=== PATIENT | female | born 1950 | race Caucasian/White ===

== ENCOUNTER → 2022-06-16 | Outpatient (CLI) | payer OTHER | END | disposition home or self-care (01) | LOC: RAH 13:36 | PROVIDERS: ATTEND Nurse Practitioner | DX: M17.11 Unilateral primary osteoarthritis, right knee (principal); M71.21 Synovial cyst of popliteal space [Baker], right knee | CPT/HCPCS: 73721 ==

== ENCOUNTER 2023-04-18 06:15 | Observation (INO) | payer OTHER ==
[2023-04-15 11:48] VITALS: BP 160/70; PULSE 52; RESP 16
[2023-04-15 12:09] LABS: BASOPHILS # (AUTO) 0.05 K/uL (0.00-0.20); BASOPHILS % (AUTO) 0.7 % (0.0-5.0); EOSINOPHILS % (AUTO) 1.3 % (0.0-8.0); IMMATURE GRANULOCYTE ABSOLUTE 0.03 K/uL (0-1); LYMPHOCYTES # (AUTO) 1.4 K/uL (1.0-4.8); LYMPHOCYTES % (AUTO) 18.4 % (21.0-51.0); MEAN CORPUSCULAR HEMOGLOBIN 29.5 pg (27.0-33.0); MEAN CORPUSCULAR VOLUME 92.3 fL (79-99); MONOCYTES # (AUTO) 0.8 K/uL (0.1-1.0); MONOCYTES % (AUTO) 10.5 % (3.0-13.0); NEUTROPHILS # (AUTO) 5.1 K/uL (1.8-7.7); NEUTROPHILS % (AUTO) 68.7 % (40.0-77.0); PLATELET COUNT (AUTO) 282 K/uL (130-400); RED BLOOD CELL COUNT(AUTO) 4.44 MIL/uL (4.00-5.50); RED CELL DISTRIBUTION WIDTH 13.1 % (11.0-15.5); WHITE BLOOD COUNT (AUTO) 7.5 K/uL (4.8-10.8)
[2023-04-15 12:20] LABS: APPEARANCE,URINE CLEAR (CLEAR); BILIRUBIN,URINE NEGATIVE (NEGATIVE); COLOR,URINE LIGHT-YELLOW (YELLOW); GLUCOSE, URINE (UA) NEGATIVE (NEGATIVE); KETONES,URINE NEGATIVE (NEGATIVE); LEUKOCYTE ESTERASE ,URINE NEGATIVE Leu/uL (NEGATIVE); NITRATE,URINE NEGATIVE (NEGATIVE); OCCULT BLOOD,URINE NEGATIVE (NEGATIVE); PROTEIN,URINE NEGATIVE (NEGATIVE); UROBILINOGEN,URINE 0.2 mg/dL (0.2-1.0)
[2023-04-15 12:23] LABS: ADD UA MICROSCOPIC NO
[2023-04-15 12:26] LABS: CARBON DIOXIDE 37 mmol/L (21-32); CHLORIDE 102 mmol/L (101-111); CREATININE 0.6 mg/dL (0.5-1.5); GLOMERULAR FILTR. RATE CALC 94 mL/min (>90); GLUCOSE,RANDOM 106 mg/dL (70-105); INR < 0.93 (0.85-1.15); POTASSIUM 3.8 mmol/L (3.5-5.1); PROTHROMBIN TIME 9.9 SEC (9.6-11.6); SODIUM SERUM 143 mmol/L (136-145); UREA NITROGEN, BLOOD 20 mg/dL (7-18)
[2023-04-15 12:28] LABS: PARTIAL THROMBOPLASTIN TIME 24.8 SEC (26.3-35.5)
[2023-04-18] VITALS (26 sets, daily range): BP systolic 128–171; BP diastolic 47–73; PULSE 58–75; RESP 14–19; O2SAT 95–99
[~2023-04-18] VITALS: Ht 162.6 cm; Wt 81.6 kg
[~2023-04-18 06:15] MED LIST: ACYC5CRE2 TP; CELE200C PO; CLOT15CR23 TP; ESCI-8 PO; ESTR1TAB30 PO; FAMC500T8 PO; FOLI0.8T3 PO; GABA300S3 PO; HYDR-3830 PO; KETO120S13 TP; LEFL20TA18 PO; LEVO100C4 PO; NITR0.4T50 SL; NYST15CR39 TP; SIMV-46 PO; TERB250T89 PO; TRIAM15CRM TP
[2023-04-18] MEDS ORDERED: LACTATED RINGERS 1000ML 1,000 ML IV ONE (07:00)
[2023-04-18] MEDS ORDERED: CEFAZOLIN SODIUM 2 GM VIAL ONE (07:00)
[2023-04-18] MEDS ORDERED: SUCCINYLCHOLINE CHLORIDE 20 MG/ML 10 ML VIAL ONE (09:45)
[2023-04-18] MEDS ORDERED: ONDANSETRON 4MG INJ ONE ×2 (09:45→14:10)
[2023-04-18] MEDS ORDERED: LIDOCAINE PF 100MG/5ML (2%) SYRINGE 5ML ONE (09:45)
[2023-04-18] MEDS ORDERED: DEXAMETHASONE SOD PHOSPHATE 10MG/ML 1ML VIAL ONE (09:45)
[2023-04-18] MEDS ORDERED: PROPOFOL 10 MG/ML 20ML VIAL IV ONE (09:45)
[2023-04-18] MEDS ORDERED: NEOSTIGMINE 5MG/5ML SYR IV ONE (09:46)
[2023-04-18] MEDS ORDERED: FENTANYL CITRATE PF 50 MCG/1 ML 2ML VIAL ONE ×2 (09:46→11:23)
[2023-04-18] MEDS ORDERED: MIDAZOLAM HCL 1 MG/ML 2ML VIAL ONE (09:46)
[2023-04-18] MEDS ORDERED: GLYCOPYRROLATE 1 MG/5 ML SYRINGE ONE (09:46)
[2023-04-18] MEDS ORDERED: ROCURONIUM 10MG/1ML SYR 10 MG/ML ML ONE (09:46)
[2023-04-18] MEDS ORDERED: TRANEXAMIC ACID 1000MG/10ML ONE ×2 (09:47)
[2023-04-18] MEDS ORDERED: ROPIVACAINE 0.5% 5MG/ML 30ML ONE ×2 (10:30→13:06)
[2023-04-18] MEDS ORDERED: KETOROLAC 30MG VIAL (30MG/ML) ONE (10:30)
[2023-04-18] MEDS ORDERED: ARTIFICIAL TEARS 3.5 GM OINTMENT ONE (11:13)
[2023-04-18] MEDS ORDERED: MEPERIDINE-PF 25 MG/ML SYG ONE ×4 (12:56→14:18)
[2023-04-18] MEDS ORDERED: CALCIUM CARB 500MG PO PRN (14:00)
[2023-04-18] MEDS ORDERED: KCL 20 MEQ ERTAB PO PRN (14:00)
[2023-04-18] MEDS ORDERED: POTASSIUM CHLORIDE 20MEQ/100ML 100 ML IV PRN (14:00)
[2023-04-18] MEDS ORDERED: TRAMADOL HCL 50 MG TABLET PO PRN (14:00)
[2023-04-18] MEDS ORDERED: ONDANSETRON 4MG INJ IVP PRN (14:00)
[2023-04-18] MEDS ORDERED: POTASSIUM CHLORIDE 10% ELIXIR 20 MEQ/15 ML UDCUP PO PRN (14:00)
[2023-04-18] MEDS ORDERED: FERROUS FUMARATE 324 MG TABLET PO PRN (14:00)
[2023-04-18] MEDS ORDERED: KETOROLAC 15MG/ML VIAL (15MG/ML) ONE (14:18)
[2023-04-18] MEDS: KETOROLAC 15MG/ML VIAL (15MG/ML) IV SCH ×2 (14:27→22:31)
[2023-04-18] MEDS ORDERED: HYDROCODONE/ACETAMINOPHEN 5/325 MG TAB ONE ×2 (15:19→16:31)
[2023-04-18] MEDS ORDERED: HYDRALAZINE 20MG/ML VIAL ONE (15:54)
[2023-04-18] MEDS ORDERED: TRAMADOL HCL 50 MG TABLET ONE (17:40)
[2023-04-18] MEDS: 0.9%NACL 1000ML 1,000 ML IV SCH (18:57)
[2023-04-18] MEDS ORDERED: NON-FORMULARY MEDICATION 1 EACH (Levothyroxine Sodium (Levothyroxine) 100 MCG) PO SCH (19:00)
[2023-04-18] MEDS ORDERED: NITROGLYCERIN 0.4 MG SL TAB SL PRN (19:00)
[2023-04-18] MEDS: CEFAZOLIN SODIUM 2 GM VIAL IVPB SCH (19:31)
[2023-04-18] MEDS: GABAPENTIN 300 MG CAPSULE PO SCH (20:33)
[2023-04-18] MEDS: DOCUSATE SODIUM 100 MG CAP PO SCH (20:33)
[2023-04-18] MEDS: SIMVASTATIN 20 MG TABLET PO SCH (20:33)
[2023-04-18] MEDS: HYDROCODONE/ACETAMINOPHEN 5/325 MG TAB PO PRN (20:34)
[2023-04-18] MEDS: FAMCICLOVIR 500 MG PO SCH (21:00)
[2023-04-18] MEDS ORDERED: NON-FORMULARY MEDICATION 1 EACH (Simvastatin 40 MG) PO SCH (21:00)
[2023-04-18] MEDS ORDERED: CELECOXIB 200 MG CAP PO SCH (21:00)
[2023-04-18] MEDS ORDERED: NON-FORMULARY MEDICATION 1 EACH (Gabapentin 300 MG) PO SCH (21:00)
[2023-04-18] MEDS: CYCLOBENZAPRINE HCL 10 MG TABLET PO PRN (22:39)
[2023-04-19] VITALS (8 sets, daily range): BP systolic 127–165; BP diastolic 51–78; PULSE 58–78; RESP 18–20; O2SAT 93–97
[2023-04-19] MEDS: HYDROCODONE/ACETAMINOPHEN 5/325 MG TAB PO PRN ×5 (01:14→19:44)
[2023-04-19] MEDS: CEFAZOLIN SODIUM 2 GM VIAL IVPB SCH (03:31)
[2023-04-19] MEDS: 0.9%NACL 1000ML 1,000 ML IV SCH ×2 (03:32→10:00)
[2023-04-19 05:14] LABS: HEMATOCRIT 31.4 % (36-48); MEAN CORPUSCULAR HEMOGLOBIN 29.9 pg (27.0-33.0); MEAN CORPUSCULAR HGB CONC 32.2 g/dL (32.0-36.0); MEAN CORPUSCULAR VOLUME 92.9 fL (79-99); RED BLOOD CELL COUNT(AUTO) 3.38 MIL/uL (4.00-5.50); WHITE BLOOD COUNT (AUTO) 12.2 K/uL (4.8-10.8)
[2023-04-19 05:29] LABS: CREATININE 0.9 mg/dL (0.5-1.5); POTASSIUM 4.5 mmol/L (3.5-5.1)
[2023-04-19] MEDS: KETOROLAC 15MG/ML VIAL (15MG/ML) IV SCH (05:58)
[2023-04-19] MEDS: LEVOTHYROXINE 100 MCG TABLET PO SCH (05:59)
[2023-04-19] MEDS: FOLIC ACID 1 MG TABLET PO SCH (08:48)
[2023-04-19] MEDS: ASPIRIN 325MG EC TAB PO SCH (08:48)
[2023-04-19] MEDS: GABAPENTIN 300 MG CAPSULE PO SCH ×3 (08:49→19:47)
[2023-04-19] MEDS: POLYETHYLENE GLYCOL 3350 17 GM POWD.PACK PO SCH (08:49)
[2023-04-19] MEDS: DOCUSATE SODIUM 100 MG CAP PO SCH ×2 (08:49→19:47)
[2023-04-19] MEDS ORDERED: NON-FORMULARY MEDICATION 1 EACH (Folic Acid 1 MG) PO SCH (09:00)
[2023-04-19] MEDS: (Escitalopram Oxalate 10 MG) PO SCH (09:00)
[2023-04-19] MEDS: FAMCICLOVIR 500 MG PO SCH ×2 (09:00→19:49)
[2023-04-19] MEDS ORDERED: KETOROLAC 15MG/ML VIAL (15MG/ML) IV PRN (14:00)
[2023-04-19] MEDS ORDERED: TERBINAFINE HCL 250 MG TABLET PO SCH (17:00)
[2023-04-19] MEDS ORDERED: HYDROXYZINE 10 MG TABLET PO SCH (17:00)
[2023-04-19] MEDS: SIMVASTATIN 20 MG TABLET PO SCH (19:47)
[2023-04-19] MEDS: CYCLOBENZAPRINE HCL 10 MG TABLET PO PRN (23:43)
[2023-04-20 04:00] VITALS: BP 153/57; PULSE 76; RESP 19
[2023-04-20] MEDS: HYDROCODONE/ACETAMINOPHEN 5/325 MG TAB PO PRN ×3 (05:29→13:41)
[2023-04-20] MEDS: LEVOTHYROXINE 100 MCG TABLET PO SCH (06:17)
[2023-04-20 08:28] VITALS: BP 164/64; PULSE 68; RESP 17
[2023-04-20] MEDS: FOLIC ACID 1 MG TABLET PO SCH (08:31)
[2023-04-20] MEDS: ASPIRIN 325MG EC TAB PO SCH (08:31)
[2023-04-20] MEDS: POLYETHYLENE GLYCOL 3350 17 GM POWD.PACK PO SCH (08:32)
[2023-04-20] MEDS: DOCUSATE SODIUM 100 MG CAP PO SCH (08:32)
[2023-04-20] MEDS: GABAPENTIN 300 MG CAPSULE PO SCH ×2 (08:32→13:41)
[2023-04-20] MEDS: FAMCICLOVIR 500 MG PO SCH (08:33)
[2023-04-20] MEDS: (Escitalopram Oxalate 10 MG) PO SCH (08:33)
[2023-04-20] MEDS ORDERED: ASPI-891 PO (12:42)
[2023-04-20] MEDS ORDERED: DOCU-116 PO (12:42)
[2023-04-20] MEDS ORDERED: HYDR-4060 PO (12:42)
[2023-04-20] MEDS ORDERED: CYCL-309 PO (12:42)
[2023-04-20 13:02] VITALS: BP 152/63; PULSE 62; RESP 19
[2023-04-21] MEDS ORDERED: BISACODYL 10 MG SUPP.RECT RC PRN (14:00)
== END 2023-04-20 16:45 ==
LOC: DAH 06:15 → DAHIP 06:16 → DAH 06:16 → 4AH 18:15
PROVIDERS: ADMIT Student in an Organized Health Care Education/Training Program; ATTEND Student in an Organized Health Care Education/Training Program
DX: M17.11 Unilateral primary osteoarthritis, right knee (principal); M67.361 Transient synovitis, right knee; G89.18 Other acute postprocedural pain; D62 Acute posthemorrhagic anemia; E66.9 Obesity, unspecified; I10 Essential (primary) hypertension; K21.9 Gastro-esophageal reflux disease without esophagitis; E03.9 Hypothyroidism, unspecified; Z79.82 Long term (current) use of aspirin; Z90.710 Acquired absence of both cervix and uterus; Z88.5 Allergy status to narcotic agent; Z68.30 Body mass index [BMI] 30.0-30.9, adult
CPT/HCPCS: 82040; 80048 ×2; 85025; 85610; 85730; 87088; 84134; 86140; 81003; 36415 ×2; 87641; 96365; 96375; 27447; 64447; 88304; 73560; 97161; 97116 ×5; 97530 ×6; 96376; 96366; 85027; A6260; G0378 ×44; A4663; J7120 ×2; A4215 ×2; J3010 ×2; J3490 ×3; J1100; J2710; J0330; J2001; J0360; J2250; J2704; J2405 ×2; J1885 ×5; J2175 ×4; J2795 ×2; J0690 ×3; C1713 ×2; G0168; A4649 ×3; C1776; A6255; A4223; A4222; A4221

== ENCOUNTER 2024-10-22 13:00 | Inpatient (IN) | payer OTHER ==
[~2024-10-22] VITALS: Ht 162.6 cm; Wt 82.6 kg
[~2024-10-22 13:00] MED LIST changes: -CELE200C PO; +CELE200C3 PO; -CLOT15CR23 TP; -ESTR1TAB30 PO; -FOLI0.8T3 PO; -GABA300S3 PO; -KETO120S13 TP; -LEFL20TA18 PO; -LEVO100C4 PO; +LEVO100C5 PO; -NYST15CR39 TP; -SIMV-46 PO; -TERB250T89 PO; -TRIAM15CRM TP
[2024-10-22 14:06] VITALS: BP 145/78; PULSE 54; RESP 17; TEMP 97.3
[2024-10-22] MEDS ORDERED: GABA300C PO (19:38)
[2024-10-22] MEDS ORDERED: FOLI1 PO (19:38)
[2024-10-22] MEDS ORDERED: UPAD15TA PO (19:38)
[2024-10-22] MEDS ORDERED: CYAN250010 PO (19:40)
[2024-10-22] MEDS ORDERED: HYDR15SO11 PO (19:40)
[2024-10-22] MEDS ORDERED: MVIT PO (19:40)
[2024-10-22] MEDS ORDERED: KETO10 PO (19:40)
[2024-10-22] MEDS ORDERED: EYE HEALTH VITAMIN PO (19:40)
[2024-10-24] VITALS (26 sets, daily range): BP systolic 107–166; BP diastolic 29–80; PULSE 51–75; RESP 10–20; TEMP 96.9–98.5; O2SAT 96–97
[2024-10-24] MEDS: LACTATED RINGERS 1000ML 1,000 ML IV ONE (08:45)
[2024-10-24] MEDS: ceFAZolin SODIUM 2 GM VIAL ONE (08:45)
[2024-10-24] MEDS: MIDAZOLAM HCL 1 MG/ML 2ML VIAL ONE (08:53)
[2024-10-24] MEDS: FAMOTIDINE 20MG VIAL IV ONE (10:47)
[2024-10-24] MEDS: acetaMINOPHEN 0 ML ONE (10:47)
[2024-10-24] MEDS ORDERED: LIDOCAINE PF 100MG/5ML (2%) SYRINGE 5ML ONE (10:51)
[2024-10-24] MEDS ORDERED: rocuRONium bROMide 10MG/1ML 5ML VL ONE (10:52)
[2024-10-24] MEDS ORDERED: FENTanyl CITRate PF 50 MCG/1 ML 2ML VIAL ONE (10:52)
[2024-10-24] MEDS ORDERED: proPOFol 10 MG/ML 20ML VIAL IV ONE (10:52)
[2024-10-24] MEDS ORDERED: ROPivacaine 0.5% 5MG/ML 30ML ONE ×2 (10:55→11:00)
[2024-10-24] MEDS: TRANEXAMIC ACID 1000MG/10ML ONE (12:40)
[2024-10-24] MEDS: ceFAZolin SODIUM 1 GM VIAL IRRIG ONE (12:53)
[2024-10-24] MEDS ORDERED: ePHEDrine SULFate 50 MG/ML AMPULE ONE (13:01)
[2024-10-24] MEDS ORDERED: dexaMETHasone SOD PHOSPHATE 4 MG/ML 1ML VIAL ONE (13:03)
[2024-10-24] MEDS ORDERED: ondanSETRON 4MG INJ ONE (13:03)
[2024-10-24] MEDS ORDERED: NEOSTIGMINE METHYLSULFATE 1MG/ML IV ONE (13:28)
[2024-10-24] MEDS ORDERED: GLYCOPYRROLATE 0.2 MG/ML 5 ML VIAL ONE (13:28)
--- NOTE | 2024-10-24 15:26 | HMCIMG ---
Fluoroscopic guidance History: ORIF LT TSA, REVISION Fluoroscopic guidance provided. Procedure by ordering physician in operating room suite with fluoroscopic guidance. Several spot images were obtained. Impression: Fluoroscopic guidance.
[2024-10-24] MEDS ORDERED: CYCLOBENZAPRINE HCL 10 MG TABLET PO PRN (15:30)
[2024-10-24] MEDS ORDERED: DiphenhydrAMINE HCL 50 MG/ML VIAL IVP PRN (15:30)
[2024-10-24] MEDS ORDERED: PoTASSium chl 10% ELIXIR 20MEQ 20 MEQ/15 ML UDCUP PO PRN (15:30)
[2024-10-24] MEDS ORDERED: ondanSETRON 4MG INJ IVP PRN (15:30)
[2024-10-24] MEDS ORDERED: CALCIUM CARB 500MG PO PRN (15:30)
[2024-10-24] MEDS ORDERED: PoTASSium chloRIDE 20MEQ ER 20 MEQ ERTAB PO PRN (15:30)
[2024-10-24] MEDS ORDERED: PoTASSium chloRIDE 20MEQ/100ML 100 ML IV PRN (15:30)
[2024-10-24] MEDS ORDERED: traMADol HCL 50 MG TABLET PO PRN (15:30)
[2024-10-24] MEDS ORDERED: FE FUMARATE/FA/MV, MIN COMB#15 1 TAB PO PRN (15:30)
[2024-10-24] MEDS ORDERED: HYDROcodone/APAP 5/325 1 TAB TABLET PO PRN (15:30)
[2024-10-24] MEDS: metoCLOPRAmide 10 MG/2 ML VIAL ONE (15:53)
[2024-10-24] MEDS: 0.9%NACL 1000ML 1,000 ML IV SCH (15:55)
[2024-10-24] MEDS: ketOROlac 15MG/ML VIAL (15MG/ML) IV SCH (16:59)
[2024-10-24] MEDS ORDERED: hydrOXYzine 10 MG TABLET PO SCH (17:00)
[2024-10-24] MEDS: ketOROlac 15MG/ML VIAL (15MG/ML) ONE (17:02)
--- NOTE | 2024-10-24 17:03 | NUR ---
PT titial done in PACU, patient awake and waiting for a room assignment. Pt LUE in sling and still with limited sensation and movement. Pt able to complete bed mobility at mod assist and transfer at min assist. Pt reports history of multiple falls. Pt will need bed and chair alarm. Pt also reports that she is on chronic pain management and that " they havent given me my meds yet" and that " if they dont give them to me Ill take them myself". Pt also reports "last time I was here they left me in recovery like this, if I dont get a room Im going home". PT notified charge on 4th of these comments, as patient does not have a room yet
--- NOTE | 2024-10-24 17:07 | OP ---
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 They were concerns for failure of the rotator cuff to be part of the cause of her pain. The patient was failing conservative management. After discussion the risk, benefits, and alternatives, the patient voluntarily agreed to undergo the aforementioned procedure. DESCRIPTION OF PROCEDURE: Patient was properly identified in the preoperative holding area. Surgical site marking was verified and surgery consent reviewed. The patient was then taken to the operating room and placed in supine position on the OR table. After induction of general anesthesia, preoperative antibiotics were given, all bony prominences were well-padded as the patient was transitioned into beachchair positioning. The left upper extremity was then prepped and draped in usual sterile fashion. Surgical time out was done verifying correct surgery, side, site, and location to be performed. We then began the procedure by reopening the 12 cm long incision over the deltopectoral interval using a 10 blade. Hemostasis was performed using Bovie electrocautery. We then dissected carefully through the scar and subcutaneous tissues using the Metzenbaums to identify our deltopectoral interval. We then mobilized the cephalic vein laterally as we opened the interval. Due to the scar tissue this did result in a tear of the vein, so it was ligated using a 1. Vicryl. We then dissected through the scar tissue just lateral to the conjoined tendon and placed our retractors deep to this. The long head of the biceps tendon was absent as was the subscapularis. We had to release some of the scar tissue in the anterior aspect of the shoulder as well as release a small amount of the pectoralis insertion. With external rotation we brought the humeral head into view and released the scar tissue at the inferior aspect of the head. We were easily able to identify the humeral head implant in the components. We cleaned the junction of bone and prosthesis of fibrotic tissue using curette and rongeur. Using Arthrex as specific instrumentation, we dislodged the head and removed the central screw. We were then easily able to remove the top hat with the manufacture's instrumentation. We then placed our retractors protecting soft tissue. We then used flexible osteotomes around the remaining portion of the stem freeing it up. As we mobilized the bone in these regions we also dissected some of the lateral bone covering the shaft of the stem. This allowed us to use our flexible osteotomes down the lateral aspect of the stem pass the band. Once we felt we had adequately freed up the stem, we then reinserted the top hat and used the extraction tool allowing us to back slap the stem. This came out uneventfully. We then began retracting the humerus posteriorly and placed our retractors around the glenoid for visualization. We then used a curved quarter-inch osteotome to elevate the polyethylene off of the glenoid. The cement came with the glenoid component and these were easily removed. At this point all of the implants had been successfully removed. We then used to the guide to insert our central guidepin ensuring we were far enough inferior on the glenoid face. Over the central guidepin we reamed with the all-in-one reamer for the central peg and the baseplate. We then used the slate handler to clean up the remaining soft tissue and bone. We then thoroughly irrigated out the glenoid bone and impacted into position the glenoid baseplate. We then placed 1 compression screw and 2 locking screw in the baseplate and left the posterior hole empty. We noted using a freer elevator that the baseplate was appropriately seated. We elected to use a centered glenosphere. Glenosphere was then seated in standard fashion with the setscrew tightened. We then removed our retractors and dislocated the humerus once more. We noted that while the humerus had been retracted posteriorly there had been some fracturing of the proximal humerus with comminution. #2 Ethibond was used to gain control these fragments and retract them out of the way. At this point we began using the sounding instruments, hand reaming up to a size 10. We pinned the cutting guide off of the handle in 30 degrees of version and performed the humeral osteotomy. We then broached up to a size 10. We noted that the stem did not have adequate bony fixation due to in perfect fit in the canal and the lack of proximal bony anatomy. The rongeur was used to clean up our cut. We then elected to trial with a size +3 polyethylene. With this in place, we reduced the humerus and noted an acceptable construct. We then dislocated the humerus and remove the trial components. We thoroughly irrigated out the bone. We seated the final stem implant and placed a locking screw through the outrigger arm into the proximal locking hole. We trialed once more. The size +3 polyethylene was still appropriate so we opened the final polyethylene and implanted this in standard fashion. We then reduced the humerus once more and ensured appropriate range of motion and stability. We checked the position of the components under fluoroscopy and found him to be appropriate. #2 Ethibond was used to suture the fragments with the rotator cuff attachments back to the prosthesis to provide possible bony healing around the prosthesis. We thoroughly irrigated out the wound. We then began loosely repairing the deltopectoral interval using #2 Ethibond. Subcutaneous tissue was approximated using 2-0 Vicryl. The skin was closed using a running subcuticular 3-0 Monocryl with Dermabond applied. An Optifoam dressing was applied once the Dermabond dried. The patient was then placed into a sling, awakened from anesthesia, and taken recovery room in stable condition. RUFUS EASON MD Oct 24, 2024 17:07
--- NOTE | 2024-10-24 18:25 | NUR ---
gave report to Jessica Preston at 1809 , pt at bedside 1819 , site dressing dry and intact
--- NOTE | 2024-10-24 20:08 | HMCIMG ---
SHOULDER LTD 1VW LT REASON: S/P SHOULDER SURGERY. COMPARISON: None TECHNIQUE: Frontal projection of the left shoulder was obtained. FINDINGS: Postop changes associated soft tissue swelling and subcutaneous emphysema. Left shoulder arthroplasty changes are seen. Alignment appears be grossly adequate. IMPRESSION: Findings as described above.
[2024-10-24] MEDS: ceFAZolin SODIUM 2 GM VIAL IVP SCH (20:11)
[2024-10-24] MEDS: doCUSate SODIUM 100 MG CAP PO SCH (20:11)
[2024-10-24] MEDS: FOLic ACID 1 MG TABLET PO SCH (20:11)
[2024-10-24] MEDS: hydrOXYzine 10 MG TABLET PO SCH (21:03)
[2024-10-25] VITALS: BP 114/59; PULSE 64; RESP 20; TEMP 98.3
[2024-10-25] MEDS: HYDROcodone/APAP 5/325 1 TAB TABLET PO PRN ×2 (03:34→08:55)
[2024-10-25 03:52] LABS: HEMATOCRIT 35.1 % (36-48); MEAN CORPUSCULAR HEMOGLOBIN 30.7 pg (27.0-33.0); MEAN CORPUSCULAR HGB CONC 33.3 g/dL (32.0-36.0); MEAN CORPUSCULAR VOLUME 92.1 fL (79-99); RED BLOOD CELL COUNT(AUTO) 3.81 MIL/uL (4.00-5.50); RED CELL DISTRIBUTION WIDTH 13.1 % (11.0-15.5); WHITE BLOOD COUNT (AUTO) 12.6 K/uL (4.8-10.8)
[2024-10-25 04:00] VITALS: BP 144/72; PULSE 69; RESP 20; TEMP 98.3
[2024-10-25 04:04] LABS: CREATININE 0.7 mg/dL (0.5-1.0); POTASSIUM 4.4 mmol/L (3.5-5.1)
[2024-10-25] MEDS: levoTHYROxine 100 MCG TABLET PO SCH (06:01)
--- NOTE | 2024-10-25 07:56 | PN ---
Ortho postop day one. This morning patient is awake alert and oriented. She is in no acute distress. She is dangling at the bedside enjoying her breakfast. Vital signs have been stable. Afebrile. Laboratory results reviewed noted to have a drop in hemoglobin and hematocrit as expected. Patient is currently asymptomatic. We will address per protocol as necessary. Operative findings discussed with the patient. Voiding on her own without difficulty. Not passing gas yet. Extremity is in arm sling however she is able to range her wrist and can open and close her hand without difficultly. Distal neurovascular exam normal. The dressing is intact. Reinforced incentive spirometry. Anticipated discharge is home health/OT. Assessment: Status post left shoulder revision primary arthroplasty to reverse shoulder arthroplasty. Acute postoperative blood loss anemia. Plan: Continue with Dr. Guzman reverse shoulder arthroplasty protocol and discharge planning. Acute postoperative blood loss anemia addressed with the protocol as necessary Vitals/Labs Vital Signs Date Time Temp Pulse Resp B/P (MAP) Pulse Ox O2 Delivery O2 Flow Rate FiO2 10/25/24 04:00 98.2 69 20 144/72 96 Room Air 10/24/24 20:00 0 21 Laboratory Tests 10/25/24 03:27 Medications Current Medications Cefazolin Sodium 2 gm STK-MED ONCE .ROUTE Last administered on 10/24/24at 12:35; Start 10/24/24 at 08:26; Stop 10/24/24 at 08:26; Status DC Lactated Ringer's 1,000 ml @ As Directed STK-MED ONCE IV Last administered on 10/24/24at 08:45; Start 10/24/24 at 08:26; Stop 10/24/24 at 08:26; Status DC Midazolam HCl 2 mg STK-MED ONCE .ROUTE; Start 10/24/24 at 10:47; Stop 10/24/24 at 10:47; Status DC Acetaminophen 100 ml @ As Directed STK-MED ONCE .ROUTE; Start 10/24/24 at 10:47; Stop 10/24/24 at 10:48; Status DC Famotidine 20 mg STK-MED ONCE IV; Start 10/24/24 at 10:47; Stop 10/24/24 at 10:48; Status DC Lidocaine HCl 100 mg STK-MED ONCE .ROUTE; Start 10/24/24 at 10:51; Stop 10/24/24 at 10:52; Status DC Propofol 200 mg STK-MED ONCE IV; Start 10/24/24 at 10:52; Stop 10/24/24 at 10:52; Status DC Rocuronium [place] 50 mg STK-MED ONCE .ROUTE; Start 10/24/24 at 10:52; Stop 10/24/24 at 10:52; Status DC Fentanyl Citrate 100 mcg STK-MED ONCE .ROUTE; Start 10/24/24 at 10:52; Stop 10/24/24 at 10:52; Status DC Ropivacaine 150 mg STK-MED ONCE .ROUTE; Start 10/24/24 at 10:55; Stop 10/24/24 at 10:55; Status DC Ropivacaine 150 mg STK-MED ONCE .ROUTE; Start 10/24/24 at 11:00; Stop 10/24/24 at 11:01; Status DC Tranexamic Acid 1,000 mg STK-MED ONCE .ROUTE Last administered on 10/24/24at 12:40; Start 10/24/24 at 12:38; Stop 10/24/24 at 12:39; Status DC Ephedrine Sulfate 50 mg STK-MED ONCE .ROUTE; Start 10/24/24 at 13:01; Stop 10/24/24 at 13:01; Status DC Dexamethasone Sodium Phosphate 4 mg STK-MED ONCE .ROUTE; Start 10/24/24 at 13:03; Stop 10/24/24 at 13:03; Status DC Ondansetron HCl 4 mg STK-MED ONCE .ROUTE; Start 10/24/24 at 13:03; Stop 10/24/24 at 13:03; Status DC Glycopyrrolate 1 mg STK-MED ONCE .ROUTE; Start 10/24/24 at 13:28; Stop 10/24/24 at 13:28; Status DC Neostigmine Methylsulfate 10 mg STK-MED ONCE IV; Start 10/24/24 at 13:28; Stop 10/24/24 at 13:28; Status DC Cefazolin Sodium 3 gm STK-MED ONCE IRRIG Last administered on 10/24/24at 12:53; Start 10/24/24 at 12:53; Stop 10/24/24 at 13:53; Status DC Sodium Chloride 1,000 ml @ 100 mls/hr Q10H IV Last administered on 10/25/24at 01:39; Start 10/24/24 at 15:30; Stop 10/25/24 at 15:29 Polyethylene Glycol 17 gm DAILY PO; Start 10/25/24 at 09:00; Stop 11/24/24 at 08:59 Bisacodyl 10 mg DAILY PRN RC; Start 10/27/24 at 15:30; Stop 11/26/24 at 15:29 Ketorolac Tromethamine 15 mg Q6H PRN IV; Start 10/25/24 at 15:30; Stop 10/30/24 at 15:29 Multivitamins/Iron 1 tab DAILY PRN PO; Start 10/24/24 at 15:30; Stop 11/23/24 at 15:29 Ondansetron HCl 4 mg Q6H PRN IVP; Start 10/24/24 at 15:30; Stop 11/23/24 at 15:29 Calcium Carbonate 500 mg Q12H PRN PO; Start 10/24/24 at 15:30; Stop 11/23/24 at 15:29 Diphenhydramine HCl 25 mg Q6H PRN IVP; Start 10/24/24 at 15:30; Stop 11/23/24 at 15:29 Cefazolin Sodium 2 gm Q8H IVP Last administered on 10/25/24at 04:07; Start 10/24/24 at 20:30; Stop 10/25/24 at 04:31; Status DC Cyclobenzaprine HCl 5 mg Q8H PRN PO; Start 10/24/24 at 15:30; Stop 11/23/24 at 15:29 Docusate Sodium 100 mg BID PO Last administered on 10/24/24at 20:11; Start 10/24/24 at 21:00; Stop 11/23/24 at 20:59 Ketorolac Tromethamine 15 mg Q8H IV Last administered on 10/25/24at 06:52; Start 10/24/24 at 15:30; Stop 10/25/24 at 07:32; Status DC Potassium Chloride 100 ml @ 100 mls/hr AD PRN IV; Start 10/24/24 at 15:30; Stop 11/23/24 at 15:29 Potassium Chloride 20 meq AD PRN PO; Start 10/24/24 at 15:30; Stop 11/23/24 at 15:29 Potassium Chloride 20 meq AD PRN PO; Start 10/24/24 at 15:30; Stop 11/23/24 at 15:29 Tramadol HCl 50 mg Q6H PRN PO; Start 10/24/24 at 15:30; Stop 10/24/24 at 16:31; Status DC Acetaminophen/ Hydrocodone Bitart Q4H PRN PO; Start 10/24/24 at 15:30; Stop 10/24/24 at 16:33; Status DC Folic Acid 1 mg BID PO Last administered on 10/24/24at 20:11; Start 10/24/24 at 21:00; Stop 11/23/24 at 20:59 Gabapentin 300 mg DAILY PO; Start 10/25/24 at 09:00; Stop 11/24/24 at 08:59 Hydroxyzine HCl 10 mg DAILYDINNER PO; Start 10/24/24 at 17:00; Stop 10/24/24 at 20:22; Status DC Multivitamins Therapeutic 1 tab DAILY PO; Start 10/25/24 at 09:00; Stop 11/24/24 at 08:59 Miscellaneous Medication 2,500 mcg DAILY PO; Start 10/25/24 at 09:00; Stop 10/24/24 at 16:27; Status DC Citalopram Hydrobromide 20 mg DAILY PO; Start 10/25/24 at 09:00; Stop 11/24/24 at 08:59 Home Med Famciclovir 500 MG BID PO; Start 10/24/24 at 21:00; Stop 11/23/24 at 20:59 Levothyroxine Sodium 100 mcg [id number] PO Last administered on 10/25/24at 06:01; Start 10/25/24 at 06:30; Stop 11/24/24 at 06:29 Home Med Upadacitinib (Rinvoq ER) 15 MG DAILY PO; Start 10/25/24 at 09:00; Stop 11/24/24 at 08:59 Miscellaneous Medication 1 tab DAILYBKFST PO; Start 10/25/24 at 08:00; Stop 10/24/24 at 16:20; Status DC Metoclopramide HCl 10 mg STK-MED ONCE .ROUTE Last administered on 10/24/24at 15:53; Start 10/24/24 at 15:49; Stop 10/24/24 at 15:49; Status DC Acetaminophen/ Hydrocodone Bitart 1 tab Q6H PRN PO Last administered on 10/25/24at 03:34; Start 10/24/24 at 17:00; Stop 10/29/24 at 16:59 Acetaminophen/ Hydrocodone Bitart 2 tab Q6H PRN PO; Start 10/24/24 at 17:00; Stop 10/29/24 at 16:59 Ketorolac Tromethamine 15 mg STK-MED ONCE .ROUTE; Start 10/24/24 at 16:58; Stop 10/24/24 at 16:58; Status DC Hydroxyzine HCl 10 mg HS PO Last administered on 10/24/24at 21:03; Start 10/24/24 at 21:00; Stop 11/23/24 at 20:59 KATYA DUNN NP Oct 25, 2024 07:56
[2024-10-25 08:28] VITALS: BP 146/61; PULSE 67; RESP 16; TEMP 98.6
[2024-10-25] MEDS: MULTIVITAMIN TABLET PO SCH (08:55)
[2024-10-25] MEDS: citaLOPram 20 MG TABLET PO SCH (08:55)
[2024-10-25] MEDS: polyETHYLene GLYCol 3350 17 GM POWD.PACK PO SCH (08:56)
[2024-10-25] MEDS: GABAPENTIN 300 MG CAPSULE PO SCH (08:56)
[2024-10-25] MEDS: UPADACITINIB 15 MG PO SCH (08:58)
[2024-10-25] MEDS ORDERED: NON-FORMULARY MEDICATION 1 EACH (Cyanocobalamin (Vitamin B-12) (Vitamin B12) 2,500 MCG) PO SCH (09:00)
[2024-10-25 09:01] VITALS: O2SAT 96
--- NOTE | 2024-10-25 11:35 | NUR ---
DCP CM MET WITH PT THIS MORNING, INITIAL ASSESSMENT DONE. PATIENT IS INDEPENDENT PRIOR TO SURGERY, LIVES AT HOME ALONE, HAS A FRIEND CLOSE BY. PT STATE SHE HAS A SHOWER CHAIR THAT USED TO BELONG TO HER , WALKER AND CANE THAT SHE DOESN'T USE BUT AVAILABLE. DENIES ANY OTHER EQUIPMENT/SERVICES. FEELS SAFE TO GO BACK HOME, STILL DRIVE, PT ARRANGES OWN NEEDS, FRIEND AMBER ABLE TO ASSIST WITH TRANSPORTATION NECESSARY. CM CONFIRMED W/DR EASON REGARDING HH, PT TO GO TO [facility] FOR PT. NO NEEDS AT THIS TIME. DCP HOME ONCE MD CLEARED. Addendum: 10/25/24 at 1138 by EVNTURA WILLIAM LVN CM Amended: Links added.
[2024-10-25] MEDS ORDERED: HYDR-4060 PO (11:36)
[2024-10-25] MEDS ORDERED: CYCL-309 PO (11:36)
[2024-10-25] MEDS ORDERED: DOCU-116 PO (11:36)
[2024-10-25 11:42] VITALS: BP 135/52; PULSE 63; RESP 16; TEMP 98.6
[2024-10-25] MEDS ORDERED: ketOROlac 15MG/ML VIAL (15MG/ML) IV PRN (15:30)
--- NOTE | 2024-10-25 17:18 | NUR ---
Discharge Pt was educated on passive ROM exercises and opioid management of pain. pt verbalized understanding & denied needing further assistance. IV was removed w/o complications. Pt was transported to the main entrance via W/C by SIGN ARTIST. no s/s of distress noted.
[2024-10-27] MEDS ORDERED: BisaCODYL 10 MG SUPP.RECT RC PRN (15:30)
== END 2024-10-25 17:19 | disposition home or self-care (01) | DRG 483 ==
LOC: DAHIP 10-24 08:02 → UNDOADMIN 10-24 08:02 → 4AH 10-24 18:20 → DAHIP 10-24 18:20 → UNDODISIN 10-25 17:19
PROVIDERS: ADMIT Student in an Organized Health Care Education/Training Program; ATTEND Student in an Organized Health Care Education/Training Program
PROC: 3E0T3BZ Introduction of Anesthetic Agent into Peripheral Nerves and Plexi, Percutaneous Approach (ICD-10-PCS; 2024-10-24)
PROC: 0RPK0JZ Removal of Synthetic Substitute from Left Shoulder Joint, Open Approach (ICD-10-PCS; 2024-10-24)
PROC: 0RRK00Z Replacement of Left Shoulder Joint with Reverse Ball and Socket Synthetic Substitute, Open Approach (ICD-10-PCS; principal; 2024-10-24 11:59)
DX: T84.098A Other mechanical complication of other internal joint prosthesis, initial encounter (principal); D62 Acute posthemorrhagic anemia; M25.312 Other instability, left shoulder; Z96.612 Presence of left artificial shoulder joint
CPT/HCPCS: 36415; 73020; 73030; 80048; 82948; 84134; 85027; 86140; 87641; A4344; G0378; J0690; J1100; J1885; J2003; J2250; J2405; J2704; J2710; J2765; J2795; J3010; J3490; J7030; J7120; A4215; A4216; A4221; A4222; A4223; A4600; A4649; A4663; A4930; A6254; C1713; C1776